=== PATIENT | male | born 1985 ===

== ENCOUNTER 2022-02-18 14:26 | Emergency (ER) | payer OTHER ==
[2022-02-18] MEDS ORDERED: Ondansetron PF 4 MG/2 ML Vial ONE (14:52)
[2022-02-18] MEDS ORDERED: Ketorolac Tromethamine 30 MG/ML VIAL ONE (14:52)
[2022-02-18] MEDS ORDERED: Fentanyl 100 MCG/2 ML VIAL ONE (14:53)
[2022-02-18] MEDS ORDERED: Ketamine 50 MG/ML (10ML VIAL) ONE (15:20)
== END 2022-02-18 17:45 | disposition home or self-care (01) ==
LOC: ERS 14:26
DX: S53.115A Anterior dislocation of left ulnohumeral joint, initial encounter (principal); S42.132A Displaced fracture of coracoid process, left shoulder, initial encounter for closed fracture; S52.132A Displaced fracture of neck of left radius, initial encounter for closed fracture; S52.022A Displaced fracture of olecranon process without intraarticular extension of left ulna, initial encounter for closed fracture; W01.0XXA Fall on same level from slipping, tripping and stumbling without subsequent striking against object, initial encounter; Y92.89 Other specified places as the place of occurrence of the external cause; Y99.0 Civilian activity done for income or pay
CPT/HCPCS: 24640; 96374; 96375; 99152; 99153; J1885; J2405; J3010